=== PATIENT | female | born 1965 | race American Indian/Alaskan Native ===

== ENCOUNTER 2016-07-01 11:21 | Outpatient (CLI) | payer MEDICAID ==
--- NOTE | 2016-07-01 13:14 | Mammography Report ---
Bilateral mammogram: Compared to 06/13/14. CAD study utilized. Findings: Predominance of adipose tissue bilaterally. Focal 4 mm new low density asymmetry outer posterior right breast. No microcalcifications. Benign calcification right breast. Normal exam. Impression: Focal faint low density asymmetry outer right breast. Recommend spot mag and if necessary sonographic examination. BI-RADS CATEGORY: 0 = Needs additional imaging evaluation ACR BI-RADS MAMMOGRAPHIC CODES: 0 = Needs additional imaging evaluation; 1 = Negative; 2 = Benign; 3 = Probably benign; 4 = Suspicious; 5 = Malignant; 6 = Known biopsy-proven malignancy COMMENT: 1. Dense breast tissue, i.e., adenosis, fibrocystic changes, etc., may obscure an underlying neoplasm. 2. Approximately 10% of cancers are not detected with mammography. 3. A negative mammography report should not delay biopsy if a clinically suspicious mass is present. COMMENT: Patient follow-up letters are generated in [employer].
== END 2016-07-01 11:22 | disposition home or self-care (01) ==
LOC: MAMMO 11:21
PROVIDERS: ATTEND Internal Medicine
DX: Z12.31 Encounter for screening mammogram for malignant neoplasm of breast (principal)
CPT/HCPCS: 77067; G0202

== ENCOUNTER 2016-07-28 09:37 | Outpatient (CLI) | payer MEDICAID ==
--- NOTE | 2016-07-28 11:47 | Mammography Report ---
Digital diagnostic mammogram. History: Recall for right asymmetry. Findings: On both the spot compression image in the 90 degree mediolateral view, the previously noted density is no longer identified. There is no evidence of mass or architectural distortion. Impression: Negative right mammogram. BI-RADS code: 1. Recommendation: Annual screening.
== END 2016-07-28 09:38 | disposition home or self-care (01) ==
LOC: MAMMO 09:37
PROVIDERS: ATTEND Internal Medicine
DX: R92.8 Other abnormal and inconclusive findings on diagnostic imaging of breast (principal)
CPT/HCPCS: G0206-RT

== ENCOUNTER 2017-12-26 10:26 | Outpatient (CLI) | payer MEDICAID | END 2017-12-26 10:27 | disposition home or self-care (01) | LOC: CARD 10:26 | DX: R94.31 Abnormal electrocardiogram [ECG] [EKG] (principal); R52 Pain, unspecified; Z79.899 Other long term (current) drug therapy | CPT/HCPCS: 93005; 93010 ==

== ENCOUNTER 2020-03-19 11:09 | Outpatient (CLI) | payer MEDICAID ==
--- NOTE | 2020-03-19 13:13 | Mammography Report ---
DIGITAL SCREENING MAMMOGRAM WITH CAD, 03/19/2020 CLINICAL INFORMATION / INDICATION: Routine screening mammography. SCREENING MAMMOGRAM TECHNIQUE: Digital bilateral 2D mammography was obtained in the craniocaudal and mediolateral obliqu e projections. This examination was interpreted with the benefit of Computer-Aided Detection analysis . COMPARISON: Prior mammogram 02/01/2018 FINDINGS: Breast Density: The breasts are almost entirely fatty. No dominant mass, suspicious calcifications, or architectural distortion in either breast. There has been no significant change compared with the prior examinations. IMPRESSION: No mammographic evidence of malignancy. Follow up recommendation: Routine yearly BI-RADS Category 1: Negative. A "normal" or negative report should not discourage follow up or biopsy of a clinically significant f inding. A written summary of these findings will be mailed to the patient. The patient will be entered into a mammography reporting system which will generate a reminder letter for the patient's next appointmen t at the appropriate interval. The [employer] recommends yearly mammograms starting at age 40 and continuing as l birana as a woman is in good health. Breast MRI is recommended for women with an approximate 20-25% or greater lifetime risk of breast cancer, including women with a strong family history of breast or ova connie cancer or who have been treated for Hodgkin's disease. Signer Name: Zena Cameron MD Signed: 03/19/2020 1:09 PM Workstation Name: [email or web address]
== END 2020-03-19 11:10 | disposition home or self-care (01) ==
LOC: MAMMO 11:09
PROVIDERS: ATTEND Internal Medicine
DX: Z12.31 Encounter for screening mammogram for malignant neoplasm of breast (principal)
CPT/HCPCS: 77067

== ENCOUNTER 2021-07-03 10:00 | Outpatient (CLI) | payer MEDICAID ==
--- NOTE | 2021-07-03 11:44 | Mammography Report ---
DIGITAL SCREENING MAMMOGRAM WITH CAD, 07/03/2021 CLINICAL INFORMATION / INDICATION: Routine screening mammography. SCREENING MAMMOGRAM TECHNIQUE: Digital bilateral 2D mammography was obtained in the craniocaudal and mediolateral obliqu e projections. This examination was interpreted with the benefit of Computer-Aided Detection analysis . COMPARISON: 03/19/2020 and 02/01/2018 FINDINGS: Breast Density: The breasts are almost entirely fatty. No dominant mass, suspicious calcifications, or architectural distortion in either breast. IMPRESSION: No mammographic evidence of malignancy. Follow up recommendation: Routine yearly BI-RADS Category 1: NEGATIVE A "normal" or negative report should not discourage follow up or biopsy of a clinically significant f inding. A written summary of these findings will be mailed to the patient. The patient will be entered into a mammography reporting system which will generate a reminder letter for the patient's next appointmen t at the appropriate interval. The [employer] recommends yearly mammograms starting at age 40 and continuing as l briana as a woman is in good health. Breast MRI is recommended for women with an approximate 20-25% or greater lifetime risk of breast cancer, including women with a strong family history of breast or ova connie cancer or who have been treated for Hodgkin's disease. Signer Name: Jamil Hensley MD Signed: 07/03/2021 11:40 AM Workstation Name: [id number]
== END 2021-07-03 10:01 | disposition home or self-care (01) ==
LOC: MAMMO 10:00
PROVIDERS: ATTEND Internal Medicine
DX: Z12.31 Encounter for screening mammogram for malignant neoplasm of breast (principal)
CPT/HCPCS: 77067